=== PATIENT | female | born 1980 | race Caucasian/White ===

== ENCOUNTER 2020-05-30 17:36 | Emergency (ER) | payer MEDICAID ==
[~2020-05-30] VITALS: Ht 167.6 cm; Wt 63.5 kg
[2020-05-30 17:36] VITALS: BP_SYST 110
--- NOTE | 2020-05-30 17:36 | NUR ---
Patient triaged and placed in waiting room. VSS and patient appears in no acute distress at this time. Accompanied by SELF, awaiting available bed, and MD notified of need for MSE.
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
--- NOTE | 2020-05-30 18:54 | NUR ---
BROUGHT BACK TO BED #6 AND TRIAGED. REPORT GIVEN TO LIONEL
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
--- NOTE | 2020-05-30 19:30 | NUR ---
Dr Arteaga assessing patient at bedside
[2020-05-30] MEDS ORDERED: DIPH-TET-PERTUS Vaccine 0.5 ML VIAL (ADACEL) I.M. ONE (20:00)
[2020-05-30] MEDS ORDERED: ACETAMINOPHEN 500 MG TABLET PO ONE (20:00)
--- NOTE | 2020-05-30 20:05 | NUR ---
Pt A&Ox4, VSS, respirations even and unlabored, cap refill <3.
--- NOTE | 2020-05-30 21:18 | NUR ---
Pt resting at this time, no s/s of distress noted
[2020-05-30 21:31] LABS: CKMB RELATIVE INDEX 0.2 (0.0-2.9); CREATINE KINASE MB 0.6 ng/mL (0-3.6)
--- NOTE | 2020-05-30 22:35 | NUR ---
Patient given written and verbal discharge instructions and verbalizes understanding. ER MD discussed with patient the results and treatment provided. Patient in stable condition. ID arm band removed. Rx of Motrin given. Patient educated on pain management and to follow up with PMD. Pain Scale 1/10. Opportunity for questions provided and answered. Medication side effect fact sheet provided.
[2020-05-30 22:36] VITALS: BP_SYST 110
== END 2020-05-30 22:35 | disposition home or self-care (01) ==
LOC: SED 17:36
DX: S23.3XXA Sprain of ligaments of thoracic spine, initial encounter (principal); Z88.5 Allergy status to narcotic agent; Z88.8 Allergy status to other drugs, medicaments and biological substances; Y04.2XXA Assault by strike against or bumped into by another person, initial encounter; Y93.89 Activity, other specified; Y92.89 Other specified places as the place of occurrence of the external cause; Y99.8 Other external cause status
CPT/HCPCS: 36415; 72072-TC; 81002; 81025; 82550-TC; 82553-TC; 90715; 99284